=== PATIENT | male | born 1960 | race Caucasian/White ===

== ENCOUNTER 2020-12-21 02:52 | Emergency (ER) | payer MEDICARE ==
[~2020-12-21 02:52] MED LIST: PROTONIX 40MG T40 MG PO
[2020-12-21 03:36] LABS: BASOPHIL 0.2 % (0-2); EOSINOPHIL 0.2 % (0-5); HCT 48.3 % (42.0-52.0); HGB 16.5 g/dl (13.2-18.0); LYMPHOCYTE 14.9 % (15-48); MCH 30.6 pg (25.0-31.0); MCHC 34.2 g/dL (32.0-36.0); MCV 89.4 fL (78.0-100.0); MONOCYTE 10.8 % (0-12); MPV 11.7 fL (6.0-9.5); NEUTROPHIL 73.4 % (41-80); NRBC 0; PLT 120 K/uL (150-400); RDW 12.6 % (11.5-14.0); WBC 4.4 K/uL (4.0-10.5)
[2020-12-21 03:53] LABS: ALBUMIN 3.4 g/dL (3.4-5.0); BILIRUBIN - TOTAL 0.5 mg/dL (0.2-1.0); CREATININE 1.22 mg/dL (0.67-1.17); GLOBULIN (CALCULATION) 3.5 g/dL; POTASSIUM 3.4 mmol/L (3.5-5.1); TOTAL PROTEIN 6.9 g/dL (6.4-8.2)
[2020-12-21] MEDS ORDERED: ZOFRAN4 M1 PO (04:16)
== END 2020-12-21 04:25 | disposition home or self-care (01) ==
LOC: FER 02:52
PROVIDERS: Emergency Medicine
DX: U07.1 COVID-19 (principal); R07.89 Other chest pain; Z98.890 Other specified postprocedural states; Z87.19 Personal history of other diseases of the digestive system
CPT/HCPCS: 36415; 71045; 80053; 84484; 85025; 93005; J2405; J7030